=== PATIENT | female | born 1985 | race Caucasian/White ===

== ENCOUNTER 2017-03-31 03:12 | Emergency (ER) | payer MEDICAID ==
[2017-03-31 03:18] VITALS: BP 122/77
[2017-03-31] MEDS ORDERED: CEPHALEXIN 500 MG CAPSULE PO ONE (04:51)
--- NOTE | 2017-03-31 04:54 | ER Document Report ---
ED General - General Chief Complaint: Toothache Stated Complaint: POSSIBLE TOOTH INFECTION Time Seen by Provider: 03/31/17 04:18 Notes: Patient is a 31-year-old female who presents with concerns of right lower facial swelling and dental pain. States that she is scheduled to see a dentist next week but became concerned when her face began to swell that she would need antibiotics. She has had similar symptoms in the past. She notes a dull, constant, throbbing pain to the affected area. Eating worsens the pain. She has been trying ibuprofen with moderate improvement of pain. Denies any difficulty breathing or swelling. No fever or constitutional symptoms. TRAVEL OUTSIDE OF THE [place] IN LAST 30 DAYS: No - Related Data Allergies/Adverse Reactions: amoxicillin Allergy (Intermediate, Verified 08/28/16 06:29) VOMITING Penicillins Adverse Reaction (Intermediate, Verified 08/28/16 06:29) ITCHING Past Medical History - General Information source: Patient - Social History Smoking Status: Never Smoker Frequency of alcohol use: None Drug Abuse: None Lives with: Family Family History: Reviewed & Not Pertinent, CVA, DM, Hypertension Patient has suicidal ideation: No Patient has homicidal ideation: No - Past Medical History Cardiac Medical History: Denies: Hx Atrial Fibrillation, Hx Congestive Heart Failure, Hx Coronary Artery Disease, Hx Heart Attack, Hx Hypercholesterolemia, Hx Hypertension, Hx Peripheral Vascular Disease, Hx Heart Murmur Neurological Medical History: Reports: Hx Migraine. Denies: Hx Cerebrovascular Accident, Hx Seizures Renal/ Medical History: Denies: Hx End Stage Renal Disease, Hx Kidney Stones, Hx Peritoneal Dialysis Malignancy Medical History: Denies: Hx Leukemia GI Medical History: Reports: Hx Gastroesophageal Reflux Disease - "HEARTBURN". Denies: Hx Crohn's Disease, Hx Hiatal Hernia, Hx Irritable Bowel, Hx Liver Failure, Hx Ulcer Musculoskeltal Medical History: Denies Hx Arthritis, Denies Hx Fibromyalgia, Denies Hx Multiple Sclerosis, Denies Hx Muscular Dystrophy, Reports Hx Musculoskeletal Deformity, Reports Hx Musculoskeletal Trauma Psychiatric Medical History: Denies: Hx Dementia Traumatic Medical History: Denies: Hx Fractures Infectious Medical History: Denies: Hx HIV, Hx MRSA Past Surgical History: Reports: Hx Section - X1, Hx Oral Surgery - extractions. Denies: Hx Appendectomy, Hx Bowel Surgery, Hx Cholecystectomy, Hx Colostomy, Hx Coronary Artery Bypass Graft, Hx Gastric Bypass Surgery, Hx Herniorrhaphy, Hx Hysterectomy, Hx Mastectomy, Hx Pacemaker, Hx Tonsillectomy, Hx Tubal Ligation - Immunizations Immunizations up to date: Yes Hx Diphtheria, Pertussis, Tetanus Vaccination: Yes Review of Systems - Review of Systems Notes: Constitutional: Negative for fever. HENT: Positive for dental pain and facial swelling Eyes: Negative for visual changes. Cardiovascular: Negative for chest pain. Respiratory: Negative for shortness of breath. Gastrointestinal: Negative for abdominal pain, vomiting or diarrhea. Genitourinary: Negative for dysuria. Musculoskeletal: Negative for back pain. Skin: Negative for rash. Neurological: Negative for headaches, weakness or numbness. 10 point ROS negative except as marked above and in HPI. Physical Exam - Vital signs Vitals: Temp Pulse Resp BP Pulse Ox 98.2 F 88 16 122/77 98 03/31/17 03:18 03/31/17 03:18 03/31/17 03:18 03/31/17 03:18 03/31/17 03:18 Interpretation: Normal Notes: PHYSICAL EXAMINATION: GENERAL: Well-appearing, well-nourished and in no acute distress. HEAD: Atraumatic, normocephalic. EYES: sclera anicteric, conjunctiva are normal. ENT: Diffusely poor dentition, tooth #30 is partially cracked open along the gumline with a small amount of right lower gumline swelling without evidence of a periapical abscess. Airway is patent. NECK: Normal range of motion LUNGS: Normal work of breathing HEART: 2+ radial pulses bilaterally EXTREMITIES: no pitting or edema. No cyanosis. NEUROLOGICAL: No focal neurological deficits. Moves all extremities spontaneously and on command. PSYCH: Normal mood, normal affect. SKIN: Warm, Dry, normal turgor, no rashes or lesions noted. Course - Re-evaluation Re-evalutation: 03/31/17 04:51 Presentation is most consistent with likely an infected tooth. Airway is patent. Vitals within normal limits. Patient is able swallow without any difficulty. There is no significant facial swelling. Patient will be started on antibiotics. I've instructed to follow-up with dentistry as earliest ability for definitive management. Return precautions and follow-up recommendations have been discussed at length. - Vital Signs Vital signs: Temp Pulse Resp BP Pulse Ox 98.2 F 88 16 122/77 98 03/31/17 03:18 03/31/17 03:18 03/31/17 03:18 03/31/17 03:18 03/31/17 03:18 Discharge - Discharge Clinical Impression: Dental infection Condition: Good Disposition: HOME, SELF-CARE Additional Instructions: You have been seen for dental pain. It is very important that you follow-up with a dentist for definitive care. Please return if you develop fever greater than 101, swelling in your face, vomiting, difficulty breathing or swallowing, or any other symptoms that are concerning to you. For pain you should take ibuprofen 600 mg every 6 hours as needed. Prescriptions: Cephalexin Monohydrate [Keflex 500 mg Capsule] 500 mg PO QID #28 capsule
== END 2017-03-31 05:24 | disposition home or self-care (01) ==
LOC: ER 03:12
DX: K04.7 Periapical abscess without sinus (principal); K08.89 Other specified disorders of teeth and supporting structures; R22.0 Localized swelling, mass and lump, head
CPT/HCPCS: 99282

== ENCOUNTER 2018-10-16 19:19 | Emergency (ER) | payer MEDICAID ==
[2018-10-16] MEDS ORDERED: CEPHALEXIN 500 MG CAPSULE PO ONE (22:09)
--- NOTE | 2018-10-16 22:13 | ER Document Report ---
HPI - HPI Patient complains to provider of: toothache Pain Level: 4 Context: Patient is a 33-year-old female presents to the emergency department complaining of right upper tooth pain. Patient states she developed right upper tooth pain yesterday evening the pain has increased and now she has noticed some minor swelling to her face which is why she presents to the emergency room. Patient states she has not been to the dentist in over a year. Patient states she was to this facility a while ago pain and was given Keflex. Patient states clindamycin does not have her work with her tooth infections. Patient states she is allergic to penicillin. Past medical history: None Medications: None Allergies: Penicillin - CONSTITUTIONAL Constitutional: DENIES: Fever - NEURO Neurology: REPORTS: Headache - REPRODUCTIVE Reproductive: DENIES: : <BERTA DANG - Last Filed: 10/17/18 01:49> <JACOBO CROSS - Last Filed: 10/17/18 01:55> - HPI Time Seen by Provider: 10/16/18 21:11 Past Medical History - General Information source: Patient - Social History Smoking Status: Current Every Day Smoker Chew tobacco use (# tins/day): No Frequency of alcohol use: Social Drug Abuse: None Family History: Reviewed & Not Pertinent, CVA, DM, Hypertension Patient has suicidal ideation: No Patient has homicidal ideation: No - Past Medical History Cardiac Medical History: Denies: Hx Atrial Fibrillation, Hx Congestive Heart Failure, Hx Coronary Artery Disease, Hx Heart Attack, Hx Hypercholesterolemia, Hx Hypertension, Hx Peripheral Vascular Disease, Hx Heart Murmur Neurological Medical History: Reports: Hx Migraine. Denies: Hx Cerebrovascular Accident, Hx Seizures Renal/ Medical History: Denies: Hx End Stage Renal Disease, Hx Kidney Stones, Hx Peritoneal Dialysis Malignancy Medical History: Denies: Hx Leukemia GI Medical History: Reports: Hx Gastroesophageal Reflux Disease - "HEARTBURN". Denies: Hx Crohn's Disease, Hx Hiatal Hernia, Hx Irritable Bowel, Hx Liver Failure, Hx Pancreatitis, Hx Ulcer Musculoskeletal Medical History: Denies Hx Arthritis, Denies Hx Fibromyalgia, Denies Hx Multiple Sclerosis, Denies Hx Muscular Dystrophy, Reports Hx Musculoskeletal Deformity, Reports Hx Musculoskeletal Trauma Psychiatric Medical History: Denies: Hx Dementia Traumatic Medical History: Denies: Hx Fractures Infectious Medical History: Denies: Hx HIV, Hx MRSA Past Surgical History: Reports: Hx Section - X1, Hx Oral Surgery - extractions. Denies: Hx Appendectomy, Hx Bowel Surgery, Hx Cholecystectomy, Hx Colostomy, Hx Coronary Artery Bypass Graft, Hx Gastric Bypass Surgery, Hx Herniorrhaphy, Hx Hysterectomy, Hx Mastectomy, Hx Pacemaker, Hx Tonsillectomy, Hx Tubal Ligation - Immunizations Immunizations up to date: Yes Hx Diphtheria, Pertussis, Tetanus Vaccination: Yes <BERTA DANG - Last Filed: 10/17/18 01:49> Vertical Provider Document - CONSTITUTIONAL Agree With Documented VS: Yes Notes: GENERAL: Alert, interacts well. No acute distress. HEAD: Normocephalic, atraumatic. EYES: Pupils equal, round, and reactive to light. Extraocular movements intact. ENT: Oral mucosa moist, tongue midline. Patient has very poor dentition. With multiple missing teeth. Multiple dental caries and black teeth. Tooth in question is #8. It is extremely decayed with surrounding gum erythema. No area of fluctuance or induration noted very minor swelling noted to the right upper gum. NECK: Full range of motion. Supple. Trachea midline. No lymphadenopathy appreciated LUNGS: Clear to auscultation bilaterally, no wheezes, rales, or rhonchi. No resp iratory distress. HEART: Regular rate and rhythm. No murmur ABDOMEN: Soft, non-tender. Non-distended. Bowel sounds present in all 4 quadrants. EXTREMITIES: Moves all 4 extremities spontaneously. No edema, normal radial and dorsalis pedis pulses bilaterally. No cyanosis. BACK: no cervical, thoracic, lumbar midline tenderness. No saddle anesthesia, normal distal neurovascular exam. NEUROLOGICAL: Alert and oriented x3. Normal speech. cranial nerves II through XII grossly intact. PSYCH: Normal affect, normal mood. SKIN: Warm, dry, normal turgor. No rashes or lesions noted. - INFECTION CONTROL TRAVEL OUTSIDE OF THE [place] IN LAST 30 DAYS: No <BERTA DANG - Last Filed: 10/17/18 01:49> Course - Re-evaluation Re-evalutation: 10/16/18 22:13 Patient states she took Motrin prior to arrival to the emergency room and she does not want any pain management at this time. Discussed with her use of antibiotics and need to follow-up with a dentist. Patient voices understanding, stable for discharge This medical record was dictated with voice recognizing software. There may be grammatical, syntax errors that are unintended. - Vital Signs Vital signs: Temp Pulse Resp BP Pulse Ox 98.7 F 86 16 136/87 H 99 10/16/18 19:52 10/16/18 19:52 10/16/18 19:52 10/16/18 19:52 10/16/18 19:52 <BERTA DANG - Last Filed: 10/17/18 01:49> - Re-evaluation Re-evalutation: I was personally available for consultation during this patient's worse. I did not personally evaluate the patient. 10/17/18 01:55 - Vital Signs Vital signs: Temp Pulse Resp BP Pulse Ox 98.6 F 79 18 141/92 H 100 10/16/18 22:28 10/16/18 22:28 10/16/18 22:28 10/16/18 22:28 10/16/18 22:28 <JACOBO CROSS - Last Filed: 10/17/18 01:55> Discharge <BERTA DANG - Last Filed: 10/17/18 01:49> <JACOBO CROSS - Last Filed: 10/17/18 01:55> - Discharge Clinical Impression: Toothache, Dental caries Condition: Stable Disposition: HOME, SELF-CARE Instructions: [facility], Cephalexin ([facility]), Toothache ([facility]) Additional Instructions: As we discussed you have been seen and treated in the emergency department for a toothache and infection. Please take antibiotics as prescribed and continue to take [id number] Tylenol Motrin for pain. Please make an appointment with your dentist within the next 24-48 hours. Please return to the emergency room for any other concerning symptoms. Prescriptions: RX: Cephalexin Monohydrate [Keflex 500 mg Capsule] 500 mg PO QID #28 capsule Referrals: SANJEEV SRINIVASAN MD [ACTIVE STAFF] - Follow up as needed
[2018-10-16 22:31] VITALS: BP 141/92
== END 2018-10-16 22:30 | disposition home or self-care (01) ==
LOC: ER 19:19
DX: K02.9 Dental caries, unspecified (principal); K08.89 Other specified disorders of teeth and supporting structures; R51 Headache; R22.0 Localized swelling, mass and lump, head; F17.200 Nicotine dependence, unspecified, uncomplicated; Z88.0 Allergy status to penicillin
CPT/HCPCS: 99282